=== PATIENT | female | born 1965 | race Caucasian/White ===

== ENCOUNTER 2020-04-18 14:31 | Outpatient (REF) | payer BC, SELFPAY | END 2020-04-18 14:32 | disposition home or self-care (01) | LOC: HO.LNP 14:31 | PROVIDERS: Visit Provider Nurse Practitioner Family | DX: Z20.828 Contact with and (suspected) exposure to other viral communicable diseases (principal) | CPT/HCPCS: U0003 ==

== ENCOUNTER 2020-12-15 07:34 | Outpatient (REF) | payer BC, SELFPAY ==
[2020-12-15 11:20] LABS: Glucose Urine UA NEG (NEG); Leukocyte Esterase Urine NEG (NEG); Nitrite Urine NEG (NEG); Specific Gravity - Urine >= 1.030 (1.005-1.025); Urine Blood 2+ (NEG); Urine Ketones NEG (NEG); Urine Protein NEG (NEG-TRACE)
[2020-12-15 11:29] LABS: Appearance Urine TURBID; Color Urine YELLOW
[2020-12-15 11:42] LABS: Hematocrit 40.6 % (37-47); Mean Corpuscular Volume 90.6 fL (80-98); Mean Platelet Volume 9.9 fL (9.4-12.3); Platelet Count 328 X10*3/uL (160-400); Red Blood Count 4.48 X10*6/uL (4.20-5.50); Red Cell Distribution Width 13.2 % (11.0-16.0); White Blood Count 9.2 X10*3/uL (4.8-10.8)
[2020-12-15 12:02] LABS: Amorphous Sediment Urine 3+ /LPF; Squamous Epithelial Cell Urine 2+ /LPF; WBC Urine 0 /HPF (0-4)
[2020-12-15 12:07] LABS: Alanine Aminotransferase 20 U/L (0-31); Alkaline Phosphatase 55 U/L (39-117); Anion Gap 12 (12-20); Aspartate Amino Transferase 15 U/L (5-31); Bilirubin Total 1.1 mg/dL (0.0-1.0); Blood Urea Nitrogen 13 mg/dL (9-16); Carbon Dioxide 24 mmol/L (22-29); Chloride 107 mmol/L (96-108); Cholesterol 215 mg/dL; Estimated Glomerular Filt Rate > 60; Glucose Fasting 94 mg/dL (60-99); HDL Cholesterol 53 mg/dL; LDL Cholesterol Calculated 136 mg/dl; Potassium 4.2 mmol/L (3.3-5.1); Sodium 139 mmol/L (135-145); TSH reflex Free T4 1.76 uIU/mL (0.32-4.0); Total Protein 6.5 g/dL (6.5-8.0); Triglycerides 130 mg/dL
== END 2020-12-15 07:35 | disposition home or self-care (01) ==
LOC: HO.HMGCLDS 07:34
PROVIDERS: PCP Internal Medicine; Visit Provider Internal Medicine
DX: Z00.00 Encounter for general adult medical examination without abnormal findings (principal)
CPT/HCPCS: 36415; 80053; 80061; 81001; 84443; 85027

== ENCOUNTER 2021-12-06 08:18 | Outpatient (REF) | payer BC, SELFPAY ==
[2021-12-06 11:45] LABS: Appearance Urine CLOUDY; Color Urine YELLOW; Glucose Urine UA NEG (NEG); Leukocyte Esterase Urine NEG (NEG); Nitrite Urine NEG (NEG); PH 5.5 (5.0-8.0); Specific Gravity - Urine >= 1.030 (1.005-1.025); Urine Blood 2+ (NEG); Urine Ketones NEG (NEG); Urine Protein NEG (NEG-TRACE)
[2021-12-06 11:52] LABS: Hematocrit 38.4 % (37.0-47.0); Hemoglobin 12.5 g/dl (12.0-16.0); Mean Corpuscular HGB Conc 32.6 g/dl (31.0-35.0); Mean Corpuscular Volume 89.1 fL (80.0-98.0); Mean Platelet Volume 9.6 fL (9.4-12.3); Platelet Count 305 X10*3/uL (160-400); Red Blood Count 4.31 X10*6/uL (4.20-5.50); Red Cell Distribution Width 12.7 % (11.0-16.0); White Blood Count 8.2 X10*3/uL (4.8-10.8)
[2021-12-06 11:58] LABS: Amorphous Sediment Urine 3+ /LPF; Mucus Urine 2+ /LPF
[2021-12-06 11:59] LABS: Squamous Epithelial Cell Urine TRACE /LPF; WBC Urine 0 /HPF (0-4)
[2021-12-06 12:03] LABS: Alanine Aminotransferase 24 U/L (0-31); Albumin Level 4.1 g/dL (3.5-5.0); Alkaline Phosphatase 65 U/L (39-117); Anion Gap 12 (12-20); Aspartate Amino Transferase 21 U/L (5-31); Bilirubin Total 1.6 mg/dL (0.0-1.0); Blood Urea Nitrogen 14 mg/dL (9-16); Calcium 9.4 mg/dL (8.4-10.2); Carbon Dioxide 24 mmol/L (22-29); Chloride 106 mmol/L (96-108); Cholesterol 224 mg/dL; Estimated Glomerular Filt Rate > 60; Glucose Fasting 99 mg/dL (60-99); HDL Cholesterol 48 mg/dL; LDL Cholesterol Calculated 141 mg/dl; Potassium 4.7 mmol/L (3.3-5.1); Sodium 137 mmol/L (135-145); Total Protein 6.6 g/dL (6.5-8.0); Triglycerides 175 mg/dL
[2021-12-06 12:20] LABS: HBS Num1 67.22 mIU/mL (0-7.99); ~Hepatitis B Surface Antibody REACTIVE (Nonreactive)
[2021-12-06 12:26] LABS: TSH reflex Free T4 1.26 uIU/mL (0.32-4.0)
== END 2021-12-06 08:19 | disposition home or self-care (01) ==
LOC: HO.HMGCLDS 08:18
PROVIDERS: Visit Provider Internal Medicine
DX: Z00.00 Encounter for general adult medical examination without abnormal findings (principal)
CPT/HCPCS: 36415; 80053; 80061; 81001; 84443; 85027; 86706

== ENCOUNTER 2022-12-14 07:14 | Outpatient (REF) | payer BC, SELFPAY | END 2022-12-14 07:15 | disposition home or self-care (01) | LOC: HO.HMGCLDS 07:14 | PROVIDERS: PCP Internal Medicine; Visit Provider Internal Medicine | DX: Z00.00 Encounter for general adult medical examination without abnormal findings (principal) | CPT/HCPCS: 36415; 80053; 80061; 83036; 84443; 85025 ==

== ENCOUNTER 2022-12-19 13:35 | Outpatient (AMB) | payer BC, SELFPAY ==
--- NOTE | 2022-12-19 13:36 | MHC.PC.OV ---
Vital Signs 12/19/22 13:37 Height 5 ft 4 in Weight 200 lb BMI 34.3 BP 124/66 Blood Pressure Location Lt brachial Position Sitting Pulse 73 Pulse Source Pulse Oximeter Pulse Oximetry (%) 96 Oxygen Delivery Method Room Air Intake Visit Reasons: 6 month follow up ( medication) Intake Note: Pt is here today for 6 months follow up visit. Allergies acetaminophen [Tylenol] Allergy (Unknown, Verified 12/19/22 13:38) unknown citalopram Adverse Reaction (Unknown, Verified 12/19/22 13:38) heavy periods Medication List - Last Reconciled 12/19/22 by Ekta Solano MD duloxetine 20 mg PO .every other day L norgest/e.estradiol-e.estrad 0.15 mg-30 mcg (84)/10 mcg (7) 1 tab PO DAILY tirzepatide (Mounjaro) 2.5 mg (0.5 mL) subcut QWEEK Tobacco use date assessed: 12/19/22 Dental Screening Dental Screen Date: 12/19/22 Did you have a dental visit in the last 12 months?: Yes Did you have a dental problem in the last 6 months where you did not have access to dental care?: No Was dental information given to patient?: Patient has dentist HPI 6 month follow up ( medication) HPI Details Pt presents for f/u. Pt lost 28 lbs in 6 months since started Mounjaro. Chronic anxiety stable on duloxetine [facility] Medical History (Updated 06/07/22 @ 10:53 by Ekta Solano MD) Annual physical exam Bilateral carpal tunnel syndrome Chronic anxiety Colon cancer screening Human papilloma virus (HPV) DNA test negative Mammogram declined Surgical History History of carpal tunnel surgery of left wrist History of carpal tunnel surgery of right wrist Family History Father No problems noted. Mother Lung cancer Social History Housing: House Patient Tobacco Use Status: Former Tobacco user e-Cigarette/Vaping Use: Never Used Second Hand Smoke Exposure: No service: No Current occupational status: employed Current occupational exposures/hazards: Yes Cognitive needs: No Hearing needs: No Vision needs: Yes Questionnaire PHQ-9 Over the last 2 weeks, how often have you been bothered by any of the following problems? 1. Little interest or pleasure in doing things: not at all 2. Feeling down, depressed, or hopeless: not at all 3. Trouble falling or staying asleep, or sleeping too much: not at all 4. Feeling tired or having little energy: not at all 5. Poor appetite or overeating: not at all 6. Feeling bad about yourself - or that you are a failure or have let yourself or your family down: not at all 7. Trouble concentrating on things, such as reading the newspaper or watching television: not at all 8. Moving or speaking so slowly that other people could have noticed. Or the opposite - being so fidgety or restless that you have been moving around a lot more than usual: not at all 9. Thoughts that you would be better off or of hurting yourself in some way: not at all Total score: 0 Depression Screening Interpretation: Negative Source: Developed by Drs. Hitesh Phillips, Concha Valentin, Nick Alonso and colleagues, with an educational devante from [employer]. Thrive Questionnaire Date Thrive assessed: 12/19/22 I am a: Patient What is your living situation today?: I have a steady place to live Within the past 12 months, did the food you bought not last and you didn't have the money to get more?: Never true Within the past 12 months, did you worry whether your food would run out before you got money to buy more?: Never true Do you have trouble paying for medicines?: No Do you have trouble getting transportation to medical appointments?: No Do you have trouble paying your heating and electricity bill?: No Do you have trouble taking care of your child, family member or friend?: No Do you have trouble with day-to-day activities such as bathing, preparing meals, shopping, managing finances, etc.?: No Are you currently unemployed and looking for a job?: No Are you interested in more education?: No AUDIT C Alcohol Use Questionnaire (AUDIT-C) 1. How often do you have a drink containing alcohol?: Monthly or less 2. How many drinks containing alcohol do you have on a typical day when you are drinking?: 1 or 2 3. How often do you have six or more drinks on one occasion?: Never Total Score: 1 MADHAV-7 AMB Questionnaire MADHAV-7 Date MADHAV - 7 assessed: 12/19/22 Feeling nervous, anxious, or on edge: 0 = Not at all Not being able to stop or control worryin = Not at all Worrying too much about different things: 0 = Not at all Trouble relaxin = Not at all Being so restless that it is hard to sit still: 0 = Not at all Becoming easily annoyed or irritable: 0 = Not at all Feeling afraid as if something awful might happen: 0 = Not at all Total MADHAV-7 score (0-4 normal; 5-9 mild; 10-14 moderate; 15-21 severe): 0 Source: Developed by Drs. Hitesh Phillips, Concha Valentin, Nick Alonso and colleagues, with an educational devante from [employer]. Review of Systems Const All systems reviewed & are unremarkable except as noted in HPI and below Reports no additional complaints Eyes Reports no additional complaints ENT Reports no additional complaints Card Reports no additional complaints Resp Reports no additional complaints GI Reports no additional complaints Reports no additional complaints Physical exam (Primary Care) Vital Signs: Last Vital Signs Pulse 73 12/19/22 13:37 BP 124/66 12/19/22 13:37 Pulse Ox 96 12/19/22 13:37 Oxygen Delivery Method Room Air 12/19/22 13:37 BMI result Body Mass Index 34.3 Tobacco/Smoking Status: Tobacco use Status Tobacco use date assessed 12/19/22 12/19/22 13:40 Patient Tobacco Use Status Former Tobacco user 12/19/22 13:40 e-Cigarette/Vaping Use Never Used 12/19/22 13:40 PHQ-9: PHQ-9 Score PHQ-9: Total score 0 12/19/22 13:45 Depression Screening Interpretation: Negative Thrive Assessment: Date of Thrive Assessment Date Thrive assessed 12/19/22 12/19/22 13:45 Const General: no acute distress HENMT Ears: hearing grossly normal bilaterally Eyes General: appearance normal, both eyes and all related structures Neck Neck: Yes supple Resp Effort & Inspection: normal respiratory effort Auscultation: clear to auscultation bilaterally Cardio Rhythm: regular rhythm Heart sounds: S1 normal heart sound present and S2 normal heart sound present GI Inspection: Yes normal to inspection Palpation (GI): Soft to palpation Percussion: Yes normal to percussion Auscultation: normal bowel sounds Assessment and Plan Assessment & Plan (1) Hyperlipidemia: Code(s): E78.5 - Hyperlipidemia, unspecified Plan: Continue low-cholesterol diet increase physical activity discussed with the patient . She will try fish oil supplement. pt will return in 6 months for physical with fasting labs before. (2) Overweight: Code(s): E66.3 - Overweight Plan: Continue Mounjaro (3) Chronic anxiety: Code(s): F41.9 - Anxiety disorder, unspecified Plan: Continue duloxetine (4) Annual physical exam: Code(s): Z00.00 - Encounter for general adult medical examination without abnormal findings Orders: Orders Complete Blood Count Auto Diff 6 Months E66.3 - Overweight, E78.5 - Hyperlipidemia, unspecified, F41.9 - Anxiety disorder, unspecified, Z00.00 - Encounter for general adult medical examination without abnormal findings Comprehensive [place]. Panel Fast 6 Months E66.3 - Overweight, E78.5 - Hyperlipidemia, unspecified, F41.9 - Anxiety disorder, unspecified, Z00.00 - Encounter for general adult medical examination without abnormal findings Lipid Panel 6 Months E66.3 - Overweight, E78.5 - Hyperlipidemia, unspecified, F41.9 - Anxiety disorder, unspecified, Z00.00 - Encounter for general adult medical examination without abnormal findings TSH reflex Free T4 6 Months E66.3 - Overweight, E78.5 - Hyperlipidemia, unspecified, F41.9 - Anxiety disorder, unspecified, Z00.00 - Encounter for general adult medical examination without abnormal findings Medications: Refilled tirzepatide (Mounjaro) 2.5 mg (0.5 mL) subcut QWEEK 6 mL 6RF L norgest/e.estradiol-e.estrad 0.15 mg-30 mcg (84)/10 mcg (7) 1 tab PO DAILY 91 tabs 3RF Coding Level of Care Code Est Pt Level 4 (84711) Diagnoses Hyperlipidemia E78.5 Overweight E66.3 Chronic anxiety F41.9 Annual physical exam Z00.00
[2022-12-19 13:37] VITALS: BP 124/66; PULSE 73; O2SAT 96; BMI 34.3
== END 2022-12-19 14:18 | disposition home or self-care (01) ==
PROVIDERS: Visit Provider Internal Medicine
DX: F41.9 Anxiety disorder, unspecified (principal); E66.3 Overweight; Z68.34 Body mass index [BMI] 34.0-34.9, adult; E78.5 Hyperlipidemia, unspecified
CPT/HCPCS: 99214

== ENCOUNTER 2023-10-25 07:00 | Outpatient (REF) | payer BC, SELFPAY ==
[2023-10-25 11:25] LABS: Basophils Absolute Auto 0.1 X10*3/uL (0.0-0.2); Basophils Percent Auto 0.9 % (0-2); Eosinophils Absolute Auto 0.3 X10*3/uL (0.0-0.4); Eosinophils Percent Auto 3.7 % (0-4); Hematocrit 40.6 % (37.0-47.0); Hemoglobin 13.4 g/dl (12.0-16.0); Imm Gran Abs Auto 0.01 X10*3/uL (0.00-0.03); Imm Gran Pct Auto 0.1 % (0.0-0.4); Lymphocytes Absolute Auto 2.8 X10*3/uL (1.2-4.9); Lymphocytes Percent Auto 40.7 % (20-40); MANUAL DIFF FLAG NO; Mean Corpuscular Hemoglobin 29.5 pg (27.0-33.0); Mean Corpuscular Volume 89.2 fL (80.0-98.0); Mean Platelet Volume 9.6 fL (9.4-12.3); Monocytes Absolute Auto 0.5 X10*3/uL (0.1-1.2); Monocytes Percent Auto 7.4 % (2-11); Neutrophils Absolute Auto 3.2 x10*3/uL (2.0-8.3); Neutrophils Percent Auto 47.2 % (45-73); Platelet Count 318 X10*3/uL (160-400); Red Blood Count 4.55 X10*6/uL (4.20-5.50); Red Cell Distribution Width 12.6 % (11.0-16.0); White Blood Count 6.8 X10*3/uL (4.8-10.8)
[2023-10-25 12:13] LABS: Alanine Aminotransferase 16 U/L (0-31); Alkaline Phosphatase 59 U/L (39-117); Anion Gap 15 (12-20); Aspartate Amino Transferase 16 U/L (5-31); Bilirubin Total 1.6 mg/dL (0.0-1.0); Blood Urea Nitrogen 15 mg/dL (9-16); Calcium 9.2 mg/dL (8.4-10.2); Carbon Dioxide 21 mmol/L (22-29); Chloride 106 mmol/L (96-108); Cholesterol 220 mg/dL (<200); Estimated Glomerular Filt Rate > 60; Glucose Fasting 91 mg/dL (60-99); HDL Cholesterol 51 mg/dL (>40); LDL Cholesterol Calculated 146 mg/dL (<100); Potassium 4.4 mmol/L (3.3-5.1); Sodium 138 mmol/L (135-145); Total Protein 6.6 g/dL (6.5-8.0); Triglycerides 119 mg/dL (<150)
[2023-10-25 12:19] LABS: TSH reflex Free T4 1.21 uIU/mL (0.32-4.0)
== END 2023-10-25 07:01 | disposition home or self-care (01) ==
LOC: HO.HMGCLDS 07:00
PROVIDERS: PCP Internal Medicine; Visit Provider Internal Medicine
DX: Z00.00 Encounter for general adult medical examination without abnormal findings (principal); E78.5 Hyperlipidemia, unspecified; E66.3 Overweight; F41.9 Anxiety disorder, unspecified
CPT/HCPCS: 36415; 80053; 80061; 84443; 85025

== ENCOUNTER 2023-11-05 08:39 | Outpatient (AMB) | payer BC, SELFPAY ==
--- NOTE | 2023-11-05 08:47 | MHC.PC.OV ---
Vital Signs 11/05/23 08:48 Height 5 ft 4 in Weight 215 lb BMI 36.9 BP 136/78 Blood Pressure Location Lt brachial Position Sitting Pulse 83 Pulse Source Pulse Oximeter Pulse Oximetry (%) 99 Oxygen Delivery Method Room Air Intake Visit Reasons: Annual PE Intake Note: Pt is here today for PE. Allergies acetaminophen [Tylenol] Allergy (Unknown, Verified 11/05/23 08:50) unknown citalopram Adverse Reaction (Unknown, Verified 11/05/23 08:50) heavy periods Medication List - Last Reconciled 11/05/23 by Ekta Solano MD duloxetine 20 mg PO .every other day L norgest/e.estradiol-e.estrad 0.15 mg-30 mcg (84)/10 mcg (7) 1 tab PO DAILY semaglutide (weight loss) (Wegovy) 0.5 mg (0.5 mL) subcut QWEEK Tobacco use date assessed: 11/05/23 Dental Screening Dental Screen Date: 11/05/23 Did you have a dental visit in the last 12 months?: Yes Did you have a dental problem in the last 6 months where you did not have access to dental care?: No Was dental information given to patient?: Patient has dentist HPI Annual PE HPI Details Pt presents for PE. Patient took Mounjaro for 1 year and lost about 30 lb but has not been able to get it refilled because of the shortage. Patient has been followed low caloric diet and exercising regularly for at least 6 months. Since she stopped Mounjaro patient has gained back 15 lb. [facility] Medical History Human papilloma virus (HPV) DNA test negative Colon cancer screening Mammogram declined Annual physical exam Bilateral carpal tunnel syndrome Chronic anxiety Surgical History History of carpal tunnel surgery of right wrist History of carpal tunnel surgery of left wrist Family History Father No problems noted. Mother Lung cancer Social History Housing: House Patient Tobacco Use Status: Former Tobacco user e-Cigarette/Vaping Use: Never Used Second Hand Smoke Exposure: No service: No Current occupational status: employed Current occupational exposures/hazards: Yes Cognitive needs: No Hearing needs: No Vision needs: Yes Questionnaire PHQ-9 Over the last 2 weeks, how often have you been bothered by any of the following problems? 1. Little interest or pleasure in doing things: not at all 2. Feeling down, depressed, or hopeless: not at all 3. Trouble falling or staying asleep, or sleeping too much: not at all 4. Feeling tired or having little energy: not at all 5. Poor appetite or overeating: not at all 6. Feeling bad about yourself - or that you are a failure or have let yourself or your family down: not at all 7. Trouble concentrating on things, such as reading the newspaper or watching television: not at all 8. Moving or speaking so slowly that other people could have noticed. Or the opposite - being so fidgety or restless that you have been moving around a lot more than usual: not at all 9. Thoughts that you would be better off or of hurting yourself in some way: not at all Total score: 0 Depression Screening Interpretation: Negative Depression Screening Done: Yes Source: Developed by Drs. Hitesh Phillips, Concha Valentin, Nick Alonso and colleagues, with an educational devante from [employer]. Thrive Questionnaire Date Thrive assessed: 11/05/23 I am a: Patient What is your living situation today?: I have a steady place to live Within the past 12 months, did the food you bought not last and you didn't have the money to get more?: Never true Within the past 12 months, did you worry whether your food would run out before you got money to buy more?: Never true Do you have trouble paying for medicines?: No Do you have trouble getting transportation to medical appointments?: No Do you have trouble paying your heating and electricity bill?: No Do you have trouble taking care of your child, family member or friend?: No Do you have trouble with day-to-day activities such as bathing, preparing meals, shopping, managing finances, etc.?: No Are you currently unemployed and looking for a job?: No Are you interested in more education?: No Please select the resources that you would like help with: None THRIVE Score: 0 AUDIT C Alcohol Use Questionnaire (AUDIT-C) 1. How often do you have a drink containing alcohol?: Never 3. How often do you have six or more drinks on one occasion?: Never Total Score: 0 MADHAV-7 AMB Questionnaire MADHAV-7 Date MADHAV - 7 assessed: 11/05/23 Feeling nervous, anxious, or on edge: 0 = Not at all Not being able to stop or control worryin = Not at all Worrying too much about different things: 0 = Not at all Trouble relaxin = Not at all Being so restless that it is hard to sit still: 0 = Not at all Becoming easily annoyed or irritable: 0 = Not at all Feeling afraid as if something awful might happen: 0 = Not at all Total MADHAV-7 score (0-4 normal; 5-9 mild; 10-14 moderate; 15-21 severe): 0 Source: Developed by Drs. Hitesh Phillips, Concha Valetnin, Nick Alonso and colleagues, with an educational devante from [employer]. Review of Systems Const All systems reviewed & are unremarkable except as noted in HPI and below Reports no additional complaints Eyes Reports no additional complaints ENT Reports no additional complaints Card Reports no additional complaints Resp Reports no additional complaints GI Reports no additional complaints Reports no additional complaints Physical exam (Primary Care) Vital Signs: Last Vital Signs Pulse 83 11/05/23 08:48 BP 136/78 11/05/23 08:48 Pulse Ox 99 11/05/23 08:48 Oxygen Delivery Method Room Air 11/05/23 08:48 BMI result Body Mass Index 36.9 Tobacco/Smoking Status: Tobacco use Status Tobacco use date assessed 11/05/23 11/05/23 08:53 Patient Tobacco Use Status Former Tobacco user 11/05/23 08:53 e-Cigarette/Vaping Use Never Used 11/05/23 08:53 PHQ-9: PHQ-9 Score PHQ-9: Total score 0 11/05/23 08:53 Depression Screening Interpretation: Negative Thrive Assessment: Date of Thrive Assessment Date Thrive assessed 11/05/23 11/05/23 08:54 Const General: no acute distress HENMT Head: Yes normal to inspection Ears: hearing grossly normal bilaterally General nose exam: Normal external nose present Face and sinus: Yes normal facial exam Mouth: Normal oral and palatal mucosa present Eyes General: appearance normal, both eyes and all related structures Neck Neck: Yes no lymphadenopathy and Yes supple Resp Effort & Inspection: normal respiratory effort Auscultation: clear to auscultation bilaterally Cardio Rhythm: regular rhythm Heart sounds: S1 normal heart sound present and S2 normal heart sound present GI Inspection: Yes normal to inspection Palpation (GI): Soft to palpation Percussion: Yes normal to percussion Auscultation: normal bowel sounds Assessment and Plan Assessment & Plan (1) Annual physical exam: Code(s): Z00.00 - Encounter for general adult medical examination without abnormal findings Plan: Well-balanced diet regular exercise discussed with the patient. She will schedule mammogram. Patient is due for Pap smear next year (2) Colon cancer screening: Comment: Lisandro negative 12/2018, 12/2021 Code(s): Z12.11 - Encounter for screening for malignant neoplasm of colon (3) Hyperlipidemia: Code(s): E78.5 - Hyperlipidemia, unspecified Plan: Continue low-cholesterol diet regular exercise (4) Overweight: Code(s): E66.3 - Overweight Plan: Continue regular exercise well-balanced low caloric diet. patient will try Wegovy to facilitate weight loss Orders: Orders Complete Blood Count Auto Diff 1 Year E78.5 - Hyperlipidemia, unspecified, Z00.00 - Encounter for general adult medical examination without abnormal findings, Z12.11 - Encounter for screening for malignant neoplasm of colon Comprehensive [place]. Panel Fast 1 Year E78.5 - Hyperlipidemia, unspecified, Z00.00 - Encounter for general adult medical examination without abnormal findings, Z12.11 - Encounter for screening for malignant neoplasm of colon Lipid Panel 1 Year E78.5 - Hyperlipidemia, unspecified, Z00.00 - Encounter for general adult medical examination without abnormal findings TSH reflex Free T4 1 Year E78.5 - Hyperlipidemia, unspecified, Z00.00 - Encounter for general adult medical examination without abnormal findings, Z12.11 - Encounter for screening for malignant neoplasm of colon Vitamin D 25-OH Total 1 Year E78.5 - Hyperlipidemia, unspecified, Z00.00 - Encounter for general adult medical examination without abnormal findings, Z12.11 - Encounter for screening for malignant neoplasm of colon Follicle Stimulating Hormone 1 Year E78.5 - Hyperlipidemia, unspecified, Z00.00 - Encounter for general adult medical examination without abnormal findings, Z12.11 - Encounter for screening for malignant neoplasm of colon Medications: New semaglutide (weight loss) (Wegovy) administer weeks 5 through 8 of therapy 0.5 mg (0.5 mL) subcut QWEEK 2 mL 4RF Discontinued tirzepatide (Mounjaro) Discontinued Reason: Doctor's Order 2.5 mg (0.5 mL) subcut QWEEK 6 mL 6RF Coding Level of Care Code Est Pt Prev Care 40-64y(88058) Diagnoses Annual physical exam Z00.00 Colon cancer screening Z12.11 Hyperlipidemia E78.5 Overweight E66.3
[2023-11-05 08:48] VITALS: BP 136/78; PULSE 83; O2SAT 99; BMI 36.9
== END 2023-11-05 09:13 | disposition home or self-care (01) ==
PROVIDERS: PCP Internal Medicine; Visit Provider Internal Medicine
DX: Z00.00 Encounter for general adult medical examination without abnormal findings (principal); Z12.11 Encounter for screening for malignant neoplasm of colon; E78.5 Hyperlipidemia, unspecified; E66.3 Overweight
CPT/HCPCS: 99396

== ENCOUNTER 2023-11-05 09:14 | Outpatient (REF) | payer BC, SELFPAY ==
--- NOTE | ~2023-11-05 | XR_ITS ---
EXAMINATION: XR CHEST 2 VIEWS CLINICAL INFORMATION: Cough. COMPARISON: None. TECHNIQUE: Frontal and lateral views of the chest were obtained. FINDINGS: The heart, great vessels, pulmonary vasculature and mediastinum are normal. The lungs show no focal infiltrate, effusion or pneumothorax. There is no acute osseous abnormality. XR/XR chest 2V IMPRESSION: No active cardiopulmonary disease.
== END 2023-11-05 09:15 | disposition home or self-care (01) ==
LOC: HO.HMGCX 09:14
PROVIDERS: PCP Internal Medicine; Visit Provider Internal Medicine
DX: R05.9 Cough, unspecified (principal)
CPT/HCPCS: 71046

== ENCOUNTER 2024-11-27 07:26 | Outpatient (REF) | payer BC, SELFPAY | END 2024-11-27 07:27 | disposition home or self-care (01) | LOC: HO.HMGCLDS 07:26 | PROVIDERS: PCP Internal Medicine; Visit Provider Internal Medicine | DX: Z13.89 Encounter for screening for other disorder (principal) ==

== ENCOUNTER 2024-12-06 08:15 | Outpatient (REF) | payer BC, SELFPAY ==
[2024-12-06 13:24] LABS: MANUAL DIFF FLAG NO
[2024-12-06 13:30] LABS: Basophils Absolute Auto 0.1 X10*3/uL (0.0-0.2); Basophils Percent Auto 0.8 % (0-2); Eosinophils Absolute Auto 0.3 X10*3/uL (0.0-0.4); Eosinophils Percent Auto 3.5 % (0-4); Hematocrit 40.4 % (37.0-47.0); Hemoglobin 13.1 g/dl (12.0-16.0); Imm Gran Abs Auto 0.02 X10*3/uL (0.00-0.03); Imm Gran Pct Auto 0.2 % (0.0-0.4); Mean Corpuscular HGB Conc 32.4 g/dl (31.0-35.0); Mean Corpuscular Hemoglobin 28.9 pg (27.0-33.0); Mean Platelet Volume 9.6 fL (9.4-12.3); Monocytes Absolute Auto 0.7 X10*3/uL (0.1-1.2); Monocytes Percent Auto 7.1 % (2-11); Neutrophils Absolute Auto 5.1 x10*3/uL (2.0-8.3); Neutrophils Percent Auto 55.4 % (45-73); Platelet Count 335 X10*3/uL (160-400); Red Blood Count 4.54 X10*6/uL (4.20-5.50); Red Cell Distribution Width 13.2 % (11.0-16.0); White Blood Count 9.2 X10*3/uL (4.8-10.8)
[2024-12-06 13:52] LABS: Alanine Aminotransferase 25 U/L (0-31); Albumin Level 4.4 g/dL (3.5-5.0); Alkaline Phosphatase 65 U/L (39-117); Anion Gap 12 (12-20); Aspartate Amino Transferase 25 U/L (5-31); Bilirubin Total 1.5 mg/dL (0.0-1.0); Blood Urea Nitrogen 11 mg/dL (9-16); Calcium 9.8 mg/dL (8.4-10.2); Carbon Dioxide 25 mmol/L (22-29); Chloride 107 mmol/L (96-108); Cholesterol 224 mg/dL (<200); Estimated Glomerular Filt Rate > 60; Glucose Fasting 94 mg/dL (60-99); HDL Cholesterol 52 mg/dL (>40); LDL Cholesterol Calculated 145 mg/dL (<100); Potassium 4.4 mmol/L (3.3-5.1); Sodium 140 mmol/L (135-145); Total Protein 6.9 g/dL (6.5-8.0); Triglycerides 135 mg/dL (<150)
[2024-12-06 14:23] LABS: TSH reflex Free T4 1.38 uIU/mL (0.32-4.0); Vitamin D 25-OH Total 69.9 ng/mL (>30)
[2024-12-07 17:29] LABS: Follicle Stimulating Hormone 6.6 mIU/mL
== END 2024-12-06 08:16 | disposition home or self-care (01) ==
LOC: HO.HMGCLDS 08:15
PROVIDERS: PCP Internal Medicine; Visit Provider Internal Medicine
DX: Z00.00 Encounter for general adult medical examination without abnormal findings (principal); R00.2 Palpitations; E66.3 Overweight; Z68.38 Body mass index [BMI] 38.0-38.9, adult; E78.5 Hyperlipidemia, unspecified; Z13.31 Encounter for screening for depression; Z13.39 Encounter for screening examination for other mental health and behavioral disorders
CPT/HCPCS: 36415; 80053; 80061; 82306; 83001; 84443; 85025; 96127

== ENCOUNTER 2024-12-06 08:15 | Outpatient (AMB) | payer BC, SELFPAY ==
--- NOTE | 2024-12-06 08:17 | MHC.PC.OV ---
Vital Signs 12/06/24 08:19 Height 5 ft 4 in Weight 226 lb BMI 38.8 BP 138/72 Blood Pressure Location Lt brachial Position Sitting Respiration 18 Pulse 70 Pulse Source Pulse Oximeter Temp 98.4 F Temp Source Oral Pulse Oximetry (%) 97 Oxygen Delivery Method Room Air Intake Visit Reasons: Annual PE Intake Note: Pt is here today for PE. Allergies acetaminophen (Tylenol) Allergy (Unknown, Verified 12/06/24 08:19) unknown citalopram Adverse Reaction (Unknown, Verified 12/06/24 08:19) heavy periods Medication List - Last Reconciled 12/06/24 by Ekta Solano MD coenzyme Q10 (H2Q CoQ10) PO duloxetine 20 mg PO .every other day fish oil-dha-epa PO L norgest/e.estradiol-e.estrad 0.15 mg-30 mcg (84)/10 mcg (7) (Simpesse) 1 tab PO DAILY Tobacco use date assessed: 12/06/24 Dental Screening Dental Screen Date: 12/06/24 Did you have a dental visit in the last 12 months?: Yes Did you have a dental problem in the last 6 months where you did not have access to dental care?: No Was dental information given to patient?: Patient has dentist HPI Annual PE HPI Details Patient presents for physical. She has been under lot of stress related to her work. Patient reports that her apple watch is detecting high heart rate up to 140 but she is asymptomatic. She does not exercise regularly. Patient has been decreasing caloric intake increasing physical activity for over 6 months to lose weight. She is interested in trying GLP 1 agonist to facilitate weight loss. [facility] Medical History (Updated 12/06/24 @ 10:36 by Ekta Solano MD) Overweight Human papilloma virus (HPV) DNA test negative Colon cancer screening Mammogram declined Annual physical exam Bilateral carpal tunnel syndrome Chronic anxiety Surgical History History of carpal tunnel surgery of right wrist History of carpal tunnel surgery of left wrist Family History Father No problems noted. Mother Lung cancer Social History Housing: House Patient Tobacco Use Status: Former Tobacco user e-Cigarette/Vaping Use: Never Used Second Hand Smoke Exposure: No service: No Current occupational status: employed Current occupational exposures/hazards: Yes Cognitive needs: No Hearing needs: No Vision needs: Yes Questionnaire PHQ-9 Over the last 2 weeks, how often have you been bothered by any of the following problems? 1. Little interest or pleasure in doing things: not at all 2. Feeling down, depressed, or hopeless: not at all 3. Trouble falling or staying asleep, or sleeping too much: not at all 4. Feeling tired or having little energy: not at all 5. Poor appetite or overeating: not at all 6. Feeling bad about yourself - or that you are a failure or have let yourself or your family down: not at all 7. Trouble concentrating on things, such as reading the newspaper or watching television: not at all 8. Moving or speaking so slowly that other people could have noticed. Or the opposite - being so fidgety or restless that you have been moving around a lot more than usual: not at all 9. Thoughts that you would be better off or of hurting yourself in some way: not at all Total score: 0 Depression Screening Interpretation: Negative Depression Screening Done: Yes [id number] - PHQ-9 Billing: Yes Source: Developed by Drs. Hitesh Phillips, Concha Valentin, Nick Alonso and colleagues, with an educational devante from [employer]. Thrive Questionnaire Date Thrive assessed: 12/06/24 I am a: Patient What is your living situation today?: I have a steady place to live Within the past 12 months, did the food you bought not last and you didn't have the money to get more?: Never true Within the past 12 months, did you worry whether your food would run out before you got money to buy more?: Never true Do you have trouble paying for medicines?: No Do you have trouble getting transportation to medical appointments?: No Do you have trouble paying your heating and electricity bill?: No Do you have trouble taking care of your child, family member or friend?: No Do you have trouble with day-to-day activities such as bathing, preparing meals, shopping, managing finances, etc.?: No Are you currently unemployed and looking for a job?: No Are you interested in more education?: No Please select the resources that you would like help with: None THRIVE Score: 0 AUDIT C Alcohol Use Questionnaire (AUDIT-C) 1. How often do you have a drink containing alcohol?: Never 3. How often do you have six or more drinks on one occasion?: Never Total Score: 0 MADHAV-7 AMB Questionnaire MADHAV-7 Date MADHAV - 7 assessed: 12/06/24 Feeling nervous, anxious, or on edge: 0 = Not at all Not being able to stop or control worryin = Not at all Worrying too much about different things: 0 = Not at all Trouble relaxin = Not at all Being so restless that it is hard to sit still: 0 = Not at all Becoming easily annoyed or irritable: 0 = Not at all Feeling afraid as if something awful might happen: 0 = Not at all Total MADHAV-7 score (0-4 normal; 5-9 mild; 10-14 moderate; 15-21 severe): 0 Source: Developed by Drs. Hitesh Phillips, Concha Valentin, Nick Alonso and colleagues, with an educational devante from [employer]. MADHAV-7 Assessment Billing MADHAV-7 Assessment Tool: MADHAV-7 Assessment 00764 Review of Systems Const All systems reviewed & are unremarkable except as noted in HPI and below ENT Reports no additional complaints Card Reports no additional complaints Resp Reports no additional complaints GI Reports no additional complaints Reports no additional complaints Physical exam (Primary Care) Vital Signs: Last Vital Signs Temp 98.4 F 12/06/24 08:19 Pulse 70 12/06/24 08:19 Resp 18 12/06/24 08:19 BP 138/72 12/06/24 08:19 Pulse Ox 97 12/06/24 08:19 Oxygen Delivery Method Room Air 12/06/24 08:19 BMI result Body Mass Index 38.8 Tobacco/Smoking Status: Tobacco use Status Tobacco use date assessed 12/06/24 12/06/24 08:25 Patient Tobacco Use Status Former Tobacco user 12/06/24 08:25 e-Cigarette/Vaping Use Never Used 12/06/24 08:25 PHQ-9: PHQ-9 Score PHQ-9: Total score 0 12/06/24 08:25 Depression Screening Interpretation: Negative Thrive Assessment: Date of Thrive Assessment Date Thrive assessed 12/06/24 12/06/24 08:25 Const General: no acute distress HENMT Head: Yes normal to inspection Eyes General: appearance normal, both eyes and all related structures Resp Effort & Inspection: normal respiratory effort Auscultation: clear to auscultation bilaterally Cardio Rhythm: regular rhythm Heart sounds: S1 normal heart sound present and S2 normal heart sound present GI Inspection: Yes normal to inspection Palpation (GI): Soft to palpation Percussion: Yes normal to percussion Auscultation: normal bowel sounds Extrem General: Yes no clubbing, cyanosis or edema Coding Level of Care Code Est Pt Prev Care 40-64y(74924) Diagnoses Palpitations R00.2 Colon cancer screening Z12.11 Annual physical exam Z00.00 Overweight E66.3 Additional Codes MADHAV-7 Assessment Billing - MADHAV-7 Assessment Tool: MADHAV-7 Assessment 41200 ([id number]) PHQ-9 - 60020 - PHQ-9 Billing: Yes ([id number]) Assessment & Plan Assessment & Plan (1) Palpitations: Comment: Tachycardia detected on smart watch Code(s): R00.2 - Palpitations Category: Medical Plan: EKG showed normal sinus rhythm no ST-T changes. Three day Holter will be obtained. Patient was advised to avoid caffeinated drinks so well hydrated and start regular physical activity (2) Colon cancer screening: Comment: Cologuard negative 12/2018, 03/2022 Code(s): Z12.11 - Encounter for screening for malignant neoplasm of colon Category: Medical Plan: Patient declined colonoscopy (3) Annual physical exam: Code(s): Z00.00 - Encounter for general adult medical examination without abnormal findings Category: Medical Plan: Well-balanced diet regular physical activity weight loss discussed with the patient. She will return for fasting blood work patient will stop oral contraception and FSH level will be checked. (4) Overweight: Comment: BMI 38 11/2024 Code(s): E66.3 - Overweight Category: Medical Plan: Decrease caloric intake increase physical activity discussed with the patient . Zepbound will be started and patient will follow-up in 2 months Orders: Orders ECG 3 day holter monitor Today R00.2 - Palpitations Comprehensive [place]. Panel Fast 1 Year E78.5 - Hyperlipidemia, unspecified, Z00.00 - Encounter for general adult medical examination without abnormal findings Lipid Panel 1 Year E78.5 - Hyperlipidemia, unspecified, Z00.00 - Encounter for general adult medical examination without abnormal findings Complete Blood Count Auto Diff 1 Year E78.5 - Hyperlipidemia, unspecified, Z00.00 - Encounter for general adult medical examination without abnormal findings TSH reflex Free T4 1 Year E78.5 - Hyperlipidemia, unspecified, Z00.00 - Encounter for general adult medical examination without abnormal findings Vitamin D 25-OH Total 1 Year E78.5 - Hyperlipidemia, unspecified, Z00.00 - Encounter for general adult medical examination without abnormal findings Referrals Cologuard Test Z12.11 - Encounter for screening for malignant neoplasm of colon, Z12.12 - Encounter for screening for malignant neoplasm of rectum Medications: New Zepbound (tirzepatide (weight loss)) for 4 weeks 2.5 mg (0.5 mL) subcut QWEEK 2 mL 2RF NS hydroxyzine HCl 10 mg PO BEDTIME PRN 10 tabs 0RF anxiety
[2024-12-06 08:19] VITALS: BP 138/72; PULSE 70; RESP 18; TEMP 36.9; O2SAT 97; BMI 38.8
== END 2024-12-06 09:21 | disposition home or self-care (01) ==
LOC: HO.HMCC 08:16
PROVIDERS: PCP Internal Medicine; Visit Provider Internal Medicine
DX: R00.2 Palpitations (principal); Z12.11 Encounter for screening for malignant neoplasm of colon; Z00.00 Encounter for general adult medical examination without abnormal findings; E66.3 Overweight

== ENCOUNTER 2025-03-16 11:33 | Outpatient (AMB) | payer BC, SELFPAY ==
[2025-03-16 12:09] VITALS: BP 134/68; PULSE 87; RESP 19; TEMP 36.8; O2SAT 96; BMI 39.8
--- NOTE | 2025-03-16 12:09 | A.OFFPC_ITS ---
Vital Signs 03/16/25 12:09 Height 5 ft 4 in Weight 232 lb BMI 39.8 BP 134/68 Blood Pressure Location Rt brachial Position Sitting Respiration 19 Pulse 87 Pulse Source Pulse Oximeter Temp 98.2 F Temp Source Oral Pulse Oximetry (%) 96 Oxygen Delivery Method Room Air Intake Visit Reasons: Follow up Intake Note: Pt is here today for a follow up visit. Allergies acetaminophen (Tylenol) Allergy (Unknown, Verified 03/16/25 12:11) unknown citalopram Adverse Reaction (Unknown, Verified 03/16/25 12:11) heavy periods Medication List - Last Reconciled 03/16/25 by Ekta Solano MD coenzyme Q10 (H2Q CoQ10) PO duloxetine 20 mg PO .every other day fish oil-dha-epa PO hydroxyzine HCl 10 mg PO BEDTIME PRN L norgest/e.estradiol-e.estrad 0.15 mg-30 mcg (84)/10 mcg (7) (Simpesse) 1 tab PO DAILY Tobacco use date assessed: 03/16/25 Dental Screening Dental Screen Date: 12/06/24 HPI Follow up HPI Details Patient presents for the follow-up of chronic anxiety and obesity. Her insurance did not cover [email or web address]. Patient has been decreasing caloric intake increasing physical activity trying to lose weight unsuccessfully. She reports anxiety getting worse due to her work. She has been taking duloxetine every other day and is not interested in counseling. Patient complains of persistent right heel pain worse when starting to walk. She tried home plantar fasciitis exercises without improvement. [facility] Medical History (Updated 03/16/25 @ 16:10 by Ekta Solano MD) Plantar fasciitis Overweight Human papilloma virus (HPV) DNA test negative Colon cancer screening Mammogram declined Annual physical exam Bilateral carpal tunnel syndrome Chronic anxiety Surgical History History of carpal tunnel surgery of right wrist History of carpal tunnel surgery of left wrist Family History Father No problems noted. Mother Lung cancer Social History Housing: House Patient Tobacco Use Status: Former Tobacco user e-Cigarette/Vaping Use: Never Used Second Hand Smoke Exposure: No service: No Current occupational status: employed Current occupational exposures/hazards: Yes Cognitive needs: No Hearing needs: No Vision needs: Yes Questionnaire PHQ-9 Over the last 2 weeks, how often have you been bothered by any of the following problems? 1. Little interest or pleasure in doing things: several days 2. Feeling down, depressed, or hopeless: several days 3. Trouble falling or staying asleep, or sleeping too much: several days 4. Feeling tired or having little energy: several days 5. Poor appetite or overeating: several days 6. Feeling bad about yourself - or that you are a failure or have let yourself or your family down: several days 7. Trouble concentrating on things, such as reading the newspaper or watching television: several days 8. Moving or speaking so slowly that other people could have noticed. Or the opposite - being so fidgety or restless that you have been moving around a lot more than usual: not at all 9. Thoughts that you would be better off or of hurting yourself in some way: not at all Total score: 7 Depression Screening Interpretation: Negative Depression Screening Done: Yes Source: Developed by Drs. Hitesh Phillips, Concha Valentin, Nick Alonso and colleagues, with an educational devante from [employer]. Thrive Questionnaire Date Thrive assessed: 12/06/24 I am a: Patient What is your living situation today?: I choose not to answer this question Within the past 12 months, did the food you bought not last and you didn't have the money to get more?: I choose not to answer this question Within the past 12 months, did you worry whether your food would run out before you got money to buy more?: I choose not to answer this question Do you have trouble paying for medicines?: I choose not to answer this question Do you have trouble getting transportation to medical appointments?: I choose not to answer this question Do you have trouble paying your heating and electricity bill?: I choose not to answer this question Do you have trouble taking care of your child, family member or friend?: I choose not to answer this question Do you have trouble with day-to-day activities such as bathing, preparing meals, shopping, managing finances, etc.?: I choose not to answer this question Are you currently unemployed and looking for a job?: I choose not to answer this question Are you interested in more education?: I choose not to answer this question Please select the resources that you would like help with: None Currently or been in a relationship where the following occur: I choose not to answer THRIVE Score: 0 AUDIT C Alcohol Use Questionnaire (AUDIT-C) 1. How often do you have a drink containing alcohol?: Never Total Score: 0 MADHAV-7 AMB Questionnaire MADHAV-7 Date MADHAV - 7 assessed: 12/06/24 Feeling nervous, anxious, or on edge: 1 = Several days Not being able to stop or control worryin = Several days Worrying too much about different things: 1 = Several days Trouble relaxin = Several days Being so restless that it is hard to sit still: 1 = Several days Becoming easily annoyed or irritable: 1 = Several days Feeling afraid as if something awful might happen: 1 = Several days Total MADHAV-7 score (0-4 normal; 5-9 mild; 10-14 moderate; 15-21 severe): 7 Source: Developed by Drs. Hitesh Phillips, Concha Valentin, Nick Alonso and colleagues, with an educational devante from [employer]. Review of Systems Const All systems reviewed & are unremarkable except as noted in HPI and below ENT Reports no additional complaints Card Reports no additional complaints Resp Reports no additional complaints GI Reports no additional complaints Reports no additional complaints Physical exam (Primary Care) Vital Signs: Last Vital Signs Temp 98.2 F 03/16/25 12:09 Pulse 87 03/16/25 12:09 Resp 19 03/16/25 12:09 BP 134/68 03/16/25 12:09 Pulse Ox 96 03/16/25 12:09 Oxygen Delivery Method Room Air 03/16/25 12:09 BMI result Body Mass Index 39.8 Tobacco/Smoking Status: Tobacco use Status Tobacco use date assessed 03/16/25 03/16/25 12:15 Patient Tobacco Use Status Former Tobacco user 03/16/25 12:15 e-Cigarette/Vaping Use Never Used 03/16/25 12:15 PHQ-9: PHQ-9 Score PHQ-9: Total score 7 03/16/25 12:15 Depression Screening Interpretation: Negative Thrive Assessment: Date of Thrive Assessment Date Thrive assessed 12/06/24 03/16/25 12:15 Currently or been in a relationship where the following occur: I choose not to answer Const General: no acute distress HENMT Head: Yes normal to inspection Face and sinus: Yes normal facial exam Neck Neck: Yes supple Resp Effort & Inspection: normal respiratory effort Auscultation: clear to auscultation bilaterally Cardio Rhythm: regular rhythm Heart sounds: S1 normal heart sound present and S2 normal heart sound present GI Inspection: Yes normal to inspection Coding Level of Care Code Est Pt Level 4 (94445) Diagnoses Plantar fasciitis M72.2 Overweight E66.3 Chronic anxiety F41.9 Assessment & Plan Assessment & Plan (1) Plantar fasciitis: Comment: R foot Code(s): M72.2 - Plantar fascial fibromatosis Category: Medical Plan: Referred to Podiatry (2) Overweight: Comment: BMI 38 11/2024 Code(s): E66.3 - Overweight Category: Medical Plan: Decreasing caloric intake increasing physical activity discussed with the patient. Phentermine 37.5 mg daily will be tried. Patient will follow-up in 1 month (3) Chronic anxiety: Comment: On duloxetine Code(s): F41.9 - Anxiety disorder, unspecified Category: Medical Plan: Continue duloxetine stress management and mindfulness discussed with the patient . she is not interested in counseling Orders: Referrals Podiatry Referral M72.2 - Plantar fascial fibromatosis Medications: New phentermine must administer 30 minutes before or 1-2 hours after breakfast 37.5 mg PO DAILY 90 tabs 0RF
== END 2025-03-16 12:48 | disposition home or self-care (01) ==
LOC: HO.HMCC 11:34
PROVIDERS: PCP Internal Medicine; Visit Provider Internal Medicine
DX: M72.2 Plantar fascial fibromatosis (principal); E66.3 Overweight; F41.9 Anxiety disorder, unspecified

== ENCOUNTER 2025-04-15 11:19 | Outpatient (AMB) | payer BC, SELFPAY ==
[2025-04-15 11:26] VITALS: BP 132/74; PULSE 86; RESP 17; TEMP 36.7; O2SAT 98; BMI 37.9
--- NOTE | 2025-04-15 11:26 | MHC.PC.OV ---
Vital Signs 04/15/25 11:26 Height 5 ft 4 in Weight 221 lb BMI 37.9 BP 132/74 Blood Pressure Location Lt brachial Position Sitting Respiration 17 Pulse 86 Pulse Source Pulse Oximeter Temp 98.1 F Temp Source Oral Pulse Oximetry (%) 98 Oxygen Delivery Method Room Air Intake Visit Reasons: 1 month f/up Intake Note: Pt is here today for 1 month follow up visit. Allergies acetaminophen (Tylenol) Allergy (Unknown, Verified 04/15/25 11:29) unknown citalopram Adverse Reaction (Unknown, Verified 04/15/25 11:29) heavy periods Medication List - Last Reconciled 04/15/25 by Ekta Solano MD coenzyme Q10 (H2Q CoQ10) PO duloxetine 20 mg PO .every other day fish oil-dha-epa PO hydroxyzine HCl 10 mg PO BEDTIME PRN L norgest/e.estradiol-e.estrad 0.15 mg-30 mcg (84)/10 mcg (7) (Simpesse) 1 tab PO DAILY phentermine 37.5 mg PO DAILY Tobacco use date assessed: 04/15/25 Dental Screening Dental Screen Date: 12/06/24 HPI 1 month f/up HPI Details Pt presents for f/u weight loss started on Phentermine and reports decreased appetite and lost 10 lbs in 1 month. Patient complains of insomnia as a side effect which has been getting slightly better. She has been trying to increase physical activity and decrease portions size [facility] Medical History (Updated 04/15/25 @ 12:32 by Ekta Solano MD) Plantar fasciitis Overweight Human papilloma virus (HPV) DNA test negative Colon cancer screening Mammogram declined Annual physical exam Bilateral carpal tunnel syndrome Chronic anxiety Surgical History History of carpal tunnel surgery of right wrist History of carpal tunnel surgery of left wrist Family History Father No problems noted. Mother Lung cancer Social History Housing: House Patient Tobacco Use Status: Former Tobacco user e-Cigarette/Vaping Use: Never Used Second Hand Smoke Exposure: No service: No Current occupational status: employed Current occupational exposures/hazards: Yes Cognitive needs: No Hearing needs: No Vision needs: Yes Questionnaire PHQ-9 Over the last 2 weeks, how often have you been bothered by any of the following problems? 1. Little interest or pleasure in doing things: several days 2. Feeling down, depressed, or hopeless: several days 3. Trouble falling or staying asleep, or sleeping too much: several days 4. Feeling tired or having little energy: several days 5. Poor appetite or overeating: several days 6. Feeling bad about yourself - or that you are a failure or have let yourself or your family down: several days 7. Trouble concentrating on things, such as reading the newspaper or watching television: several days 8. Moving or speaking so slowly that other people could have noticed. Or the opposite - being so fidgety or restless that you have been moving around a lot more than usual: not at all 9. Thoughts that you would be better off or of hurting yourself in some way: not at all Total score: 7 Depression Screening Interpretation: Negative Depression Screening Done: Yes Source: Developed by Drs. Hitesh Phillips, Concha Valentin, Nick Alonso and colleagues, with an educational devante from [employer]. Thrive Questionnaire Date Thrive assessed: 03/16/25 I am a: Patient What is your living situation today?: I choose not to answer this question Within the past 12 months, did the food you bought not last and you didn't have the money to get more?: I choose not to answer this question Within the past 12 months, did you worry whether your food would run out before you got money to buy more?: I choose not to answer this question Do you have trouble paying for medicines?: I choose not to answer this question Do you have trouble getting transportation to medical appointments?: I choose not to answer this question Do you have trouble paying your heating and electricity bill?: I choose not to answer this question Do you have trouble taking care of your child, family member or friend?: I choose not to answer this question Do you have trouble with day-to-day activities such as bathing, preparing meals, shopping, managing finances, etc.?: I choose not to answer this question Are you currently unemployed and looking for a job?: I choose not to answer this question Are you interested in more education?: I choose not to answer this question Please select the resources that you would like help with: None Currently or been in a relationship where the following occur: I choose not to answer THRIVE Score: 0 MADHAV-7 AMB Questionnaire MADHAV-7 Date MADHAV - 7 assessed: 12/06/24 Feeling nervous, anxious, or on edge: 1 = Several days Not being able to stop or control worryin = Several days Worrying too much about different things: 1 = Several days Trouble relaxin = Several days Being so restless that it is hard to sit still: 1 = Several days Becoming easily annoyed or irritable: 1 = Several days Feeling afraid as if something awful might happen: 1 = Several days Total MADHAV-7 score (0-4 normal; 5-9 mild; 10-14 moderate; 15-21 severe): 7 Source: Developed by Drs. Hitesh Phillips, Concha Valentin, Nick Alonso and colleagues, with an educational devante from [employer]. Review of Systems Const All systems reviewed & are unremarkable except as noted in HPI and below Eyes Reports no additional complaints ENT Reports no additional complaints Card Reports no additional complaints Resp Reports no additional complaints GI Reports no additional complaints Reports no additional complaints Physical exam (Primary Care) Vital Signs: Last Vital Signs Temp 98.1 F 04/15/25 11:26 Pulse 86 04/15/25 11:26 Resp 17 04/15/25 11:26 BP 132/74 04/15/25 11:26 Pulse Ox 98 04/15/25 11:26 Oxygen Delivery Method Room Air 04/15/25 11:26 BMI result Body Mass Index 37.9 Tobacco/Smoking Status: Tobacco use Status Tobacco use date assessed 04/15/25 04/15/25 11:29 Patient Tobacco Use Status Former Tobacco user 04/15/25 11:26 e-Cigarette/Vaping Use Never Used 04/15/25 11:26 PHQ-9: PHQ-9 Score PHQ-9: Total score 7 04/15/25 11:46 Depression Screening Interpretation: Negative Thrive Assessment: Date of Thrive Assessment Date Thrive assessed 03/16/25 04/15/25 11:26 Currently or been in a relationship where the following occur: I choose not to answer Const General: no acute distress HENMT Head: Yes normal to inspection General nose exam: Normal external nose present Mouth: Normal oral and palatal mucosa present Teeth and gingiva: dentition normal Throat: Yes posterior oropharynx normal Eyes General: appearance normal, both eyes and all related structures Resp Effort & Inspection: normal respiratory effort Auscultation: clear to auscultation bilaterally Cardio Rhythm: regular rhythm Heart sounds: S1 normal heart sound present and S2 normal heart sound present Coding Level of Care Code Est Pt Level 4 (83077) Diagnoses Hyperlipidemia E78.5 Chronic anxiety F41.9 Overweight E66.3 Assessment & Plan Assessment & Plan (1) Hyperlipidemia: Code(s): E78.5 - Hyperlipidemia, unspecified Category: Medical Plan: Low-cholesterol diet discussed with the patient (2) Chronic anxiety: Comment: On duloxetine Code(s): F41.9 - Anxiety disorder, unspecified Category: Medical Plan: Continue duloxetine and hydroxyzine as needed for insomnia (3) Overweight: Comment: BMI 38 11/2024, started phentermine 03/16/2025 Code(s): E66.3 - Overweight Category: Medical Plan: Continue decreasing caloric intake increasing physical activity and phentermine for 2 months. Follow-up in 2 months with a fasting labs before Orders: Orders Lipid Panel 2 Months E78.5 - Hyperlipidemia, unspecified Medications: Refilled hydroxyzine HCl 10 mg PO BEDTIME PRN 10 tabs 0RF anxiety
== END 2025-04-15 12:11 | disposition home or self-care (01) ==
LOC: HO.HMCC 11:19
PROVIDERS: PCP Internal Medicine; Visit Provider Internal Medicine
DX: E78.5 Hyperlipidemia, unspecified (principal); F41.9 Anxiety disorder, unspecified; E66.3 Overweight